=== PATIENT | male | born 1985 | race Caucasian/White ===

== ENCOUNTER 2017-07-31 13:03 | Emergency (ER) | payer SELFPAY ==
[~2017-07-31] VITALS: Ht 175.3 cm; Wt 95.4 kg
[~2017-07-31 13:03] MED LIST: CEPHALEXIN500 MG PO; CLARITIN-D1 TA1; FLONASE NASAL50 MCG; KEFLEX500 MG PO; MULTI VITAMN; MUPIROCIN2 % EX; NAPROSYN500 MG OR; NO
[2017-07-31 14:21] LABS: HEMATOCRIT 55.3 % (39.0-50.0); HEMOGLOBIN 19.1 g/dl (14.0-18.0); IMMATURE GRANULOCYTES 0.3 % (0.0-1.0); MEAN CELL VOLUME 90.5 fL CALC (80.0-100.0); MEAN CORPUSCULAR HGB 31.3 pG CALC (26.0-32.0); MEAN CORPUSCULAR HGB CONC 34.5 g/L CALC (32.0-36.0); NEUT# 9.88 thou/uL (1.82-7.42); RED BLOOD COUNT 6.11 mill/uL (4.70-6.10); RED CELL DISTRI WIDTH 13.1 % (11.5-15.5)
[2017-07-31 14:27] LABS: ALBUMIN 5.5 g/dL (3.2-5.0); ALKALINE PHOSPHATASE 103 u/l (38-126); ANION GAP 21 (6-22 (CALC)); BILIRUBIN, TOTAL 0.9 mg/dL (0.0-1.4); BUN 16 mg/dL (9-20); BUN/CREATININE RATIO 13 (12-20 (CALC)); CARBON DIOXIDE 25 mmol/l (22-30); CHLORIDE 101 mmol/l (95-108); CREATININE 1.2 mg/dL (0.7-1.3); GFR > 60 ML/MIN (>=60 (CALC)); GFR FOR AFR.AMER. > 60 ML/MIN (>=60 (CALC)); LIPASE 63 u/l (23-300); POTASSIUM 3.8 mmol/l (3.5-5.1); SGOT/AST 40 u/l (17-59); SGPT/ALT 108 u/l (21-72); SODIUM 144 mmol/l (137-146); TOTAL PROTEIN 8.7 g/dL (6.3-8.2)
[2017-07-31 14:29] LABS: URINE BLOOD DIPSTICK NEGATIVE (NEGATIVE); URINE COLOR YELLOW; URINE GLUCOSE - DIPSTICK NEGATIVE (NEGATIVE); URINE KETONE 40 mg/dL (NEGATIVE); URINE LEUK ESTERASE NEGATIVE (NEGATIVE); URINE NITRITE - DIPSTICK NEGATIVE (Negative); URINE PH 5.5 (4.5-8.0); URINE PROTEIN - DIPSTICK 100 mg/dL (NEG-TRACE); URINE SPECIFIC GRAVITY >=1.030; URINE UROBILINOGEN - DIPSTICK 0.2 E.U./dL (0.2)
[2017-07-31 14:32] LABS: URINE BILIRUBIN - DIPSTICK NEGATIVE (NEGATIVE); URINE CLARITY CLEAR
[2017-07-31 14:42] LABS: URINE MUCUS FEW hpf (NONE-FEW); URINE RBC 0-2 RBC/hpf (0-5); URINE WBC 0-2 WBC/hpf (0-5)
[2017-07-31] MEDS ORDERED: CIPROFLOXACN500 MG PO (15:09)
[2017-07-31] MEDS ORDERED: ZOFRAN ODT4 MG PO (15:10)
[2017-07-31 15:17] VITALS: BP 136/93
== END 2017-07-31 15:42 | disposition home or self-care (01) | DRG 392 ==
LOC: ED 13:03
PROVIDERS: Emergency Medicine
DX: R10.33 Periumbilical pain (principal); F17.210 Nicotine dependence, cigarettes, uncomplicated; R10.31 Right lower quadrant pain; R50.9 Fever, unspecified; R11.2 Nausea with vomiting, unspecified